=== PATIENT | female | born 1960 | race Caucasian/White ===

== ENCOUNTER 2018-10-03 12:35 | Inpatient (IN) | payer OTHER ==
[~2018-10-03] VITALS: Ht 152.4 cm; Wt 60.5 kg
[~2018-10-03 12:35] MED LIST: AMLO-218 PO; FERR-15 PO; FOLI-49 PO; HYDR-906 PO; IBUP-1542 PO; LEVO88TA36 PO; ONDA4TAB13 PO
[2018-10-03 12:38] VITALS: Ht 152.4 cm; Wt 60.5 kg
--- NOTE | 2018-10-03 14:50 | ERD ---
ER Documentation Chief Complaint Chief Complaint DIZZINESS,PARMAR,N/V,HEADACHE.S/P LEFT CATARACT SURGERY LAST MONDAY HPI 58-year-old woman complains of few days of dizziness, headache, nausea and generalized weakness. She is status post left cataract surgery about 1 week ago. Other than antibiotic drops she denies any new medications, no fevers or chills, no chest pain or shortness of breath. ROS All systems reviewed and are negative except as per history of present illness. Medications Home Meds Reported Medications Ofloxacin* (Ocuflox*) 0.3%-5 Ml Ophth Drops, 1 DROP BOTH EYES QID, BOTTLE 10/03/18 Ketorolac Tromethamine Oph (Ketorolac Tromethamine Oph) 0.5%-5 Ml Opht Drops, 1 DROP BOTH EYES QID, EA 10/03/18 Prednisolone Acetate* (Pred Forte*) 5 Ml Susp, 1 DROP BOTH EYES QID, EA 10/03/18 Simvastatin* (Zocor*) 10 Mg Tablet, 10 MG PO QHS, #30 TAB 10/03/18 Lisinopril* (Lisinopril*) 20 Mg Tablet, 20 MG PO DAILY, #30 TAB 10/03/18 Metformin Hcl* (Metformin Hcl*) 500 Mg Tablet, 500 MG PO WITH BREAKFAST DINNE, #60 TAB 10/03/18 Levothyroxine Sodium* (Levothyroxine Sodium*) 88 Mcg Tablet, 88 MCG PO BEFORE BREAKFAST, #30 TAB 10/03/18 Discontinued Reported Medications Ferrous Sulfate (Ferrousul) 325 Mg Tablet, PO BID 07/21/12 Levothyroxine Sodium (Levothroid) 88 Mcg Tablet, 88 MCG PO QAM 07/21/12 Folic Acid* (Folic Acid*) 1 Mg Tablet, PO DAILY 04/21/11 Amlodipine Besylate* (Norvasc*) 10 Mg Tablet, 10 MG PO DAILY 04/21/11 Discontinued Scripts Ibuprofen* (Motrin*) 600 Mg Tab, 600 MG PO Q6H PRN for PAIN, #30 TAB Prov:MARKUS MATHIS PA-C 05/08/16 Ondansetron Hcl* (Zofran*) 4 Mg Tab, 4 MG PO Q4H PRN for NAUSEA AND OR VOMITING, #30 TAB Prov:MARKUS MATHIS PA-C 05/08/16 Hydrocodone Bit-Acetaminophen ([place]) 5-325 Mg Tablet, 1 TAB PO Q4H PRN for PAIN, #30 TAB Prov:PINEDA PACHECO MD 03/24/14 Allergies Allergies: Coded Allergies: No Known Allergy (Verified , 10/03/18) PMhx/Soc Hypertension, diabetes, hypothyroidism, recent left cataract surgery, hypercholesterolemia History of Surgery: Yes (C-sectionx1 ) Anesthesia Reaction: No Hx Neurological Disorder: No Hx Respiratory Disorders: No Hx Cardiac Disorders: Yes (HTN) Hx Psychiatric Problems: No Hx Alcohol Use: No Hx Substance Use: No Hx Tobacco Use: No FmHx Family History: No diabetes Physical Exam Vitals Vital Signs Date Temp Pulse Resp B/P (MAP) Pulse Ox O2 O2 Flow FiO2 Time Delivery Rate 10/03/18 48 16 158/58 100 Room Air 19:49 (91) 10/03/18 47 16 146/73 98 Room Air 18:26 (97) 10/03/18 45 15 169/77 100 Room Air 17:30 (107) 10/03/18 97.0 52 18 209/86 100 12:38 (127) Physical Exam GENERAL: Well-developed, well-nourished, well-hydrated, in no apparent distress, looks nontoxic in appearance HEENT: Moist mucous membranes, pink conjunctiva, no cervical spine tenderness or step-off deformities, no goiter, no jaundice or icterus, extraocular movements intact without pain. No submandibular induration, and no pharyngeal erythema NEURO: Alert and oriented 3, cranial nerves II through XII intact bilaterally, pupils equal round reactive to light, no focal deficits or facial asymmetry, sensation intact distally Strength 5/5 in upper and lower extremities bilaterally CARDIAC: Bradycardic and regular LUNGS: Clear bilaterally no wheezing crackles or stridor ABDOMEN: Soft nontender, no guarding, no rigidity, no rebound, no psoas sign no obturator sign. Normoactive bowel sounds SKIN: Warm and dry to touch, no abrasions, contusions, or hematomas, no lacerations, no ecchymosis, no target lesions, and without ulcers EXTREMITIES: No clubbing cyanosis or edema, calves are bilaterally symmetrical, no Homans sign, no popliteal cord sign. Distal pulses equal and bilateral PSYCH: Normal affect without agitation or irritability Result Diagram: 10/03/18 1452 10/03/18 1452 Results 24 hrs Laboratory Tests Test 10/03/18 14:52 10/03/18 17:00 White Blood Count 10.2 10^3/ul Red Blood Count 4.78 10^6/ul Hemoglobin 13.2 g/dl Hematocrit 38.9 % Mean Corpuscular Volume 81.4 fl Mean Corpuscular Hemoglobin 27.6 pg Mean Corpuscular Hemoglobin Concent 33.9 g/dl Red Cell Distribution Width 12.4 % Platelet Count 235 10^3/UL Mean Platelet Volume 10.8 fl Immature Granulocytes % 0.400 % Neutrophils % 83.6 % Lymphocytes % 12.8 % Monocytes % 3.0 % Eosinophils % 0.0 % Basophils % 0.2 % Nucleated Red Blood Cells % 0.0 /100WBC Immature Granulocytes # 0.040 10^3/ul Neutrophils # 8.6 10^3/ul Lymphocytes # 1.3 10^3/ul Monocytes # 0.3 10^3/ul Eosinophils # 0.0 10^3/ul Basophils # 0.0 10^3/ul Nucleated Red Blood Cells # 0.0 10^3/ul Sodium Level 141 mmol/L Potassium Level 4.1 mmol/L Chloride Level 102 mmol/L Carbon Dioxide Level 27 mmol/L Anion Gap 12 Blood Urea Nitrogen 15 mg/dl Creatinine 0.52 mg/dl Est Glomerular Filtrat Rate mL/min > 60 mL/min Glucose Level 117 mg/dl Calcium Level 9.4 mg/dl Total Bilirubin 0.4 mg/dl Direct Bilirubin 0.00 mg/dl Indirect Bilirubin 0.4 mg/dl Aspartate Amino Transf (AST/SGOT) 25 IU/L Alanine Aminotransferase (ALT/SGPT) 43 IU/L Alkaline Phosphatase 168 IU/L Troponin I < 0.012 ng/ml Total Protein 8.3 g/dl Albumin 4.5 g/dl Globulin 3.80 g/dl Albumin/Globulin Ratio 1.18 Lipase 38 U/L Urine Color YELLOW Urine Clarity CLOUDY Urine pH 6.0 Urine Specific [place] 1.021 Urine Ketones NEGATIVE mg/dL Urine Nitrite NEGATIVE mg/dL Urine Bilirubin NEGATIVE mg/dL Urine Urobilinogen NEGATIVE mg/dL Urine Leukocyte Esterase NEGATIVE Joe/ul Urine Microscopic RBC 3 /HPF Urine Microscopic WBC 5 /HPF Urine Squamous Epithelial Cells FEW /HPF Urine Bacteria FEW /HPF Urine Mucus MANY /HPF Urine Hemoglobin NEGATIVE mg/dL Urine Glucose NEGATIVE mg/dL Urine Total Protein 2+ mg/dl Current Medications Medications Dose Sig/Ruiz Start Time Status Last (Trade) Ordered Route PRN Stop Time Admin Dose Reason Admin Sodium 1,000 ml @ Q1H STAT 10/03/18 DC 10/03/18 Chloride 1,000 mls/hr IV 15:09 15:52 10/03/18 16:08 Ondansetron 4 mg ONCE STAT 10/03/18 DC 10/03/18 HCl (Zofran IV 15:09 15:52 Inj) 10/03/18 15:11 Ketorolac 15 mg ONCE STAT 10/03/18 DC 10/03/18 Tromethamine IV 15:09 15:52 (Toradol) 10/03/18 15:11 Ceftriaxone 50 ml @ ONCE ONCE 10/03/18 DC 10/03/18 Sodium 100 mls/hr IVPB 18:00 18:12 10/03/18 18:29 Procedures/MDM IV line was established patient was placed on open winder rhythm strip revealed a narrow complex bradycardia at about 50 bpm with upright P and T waves. Patient was afebrile EKG performed, read by me revealed a sinus bradycardia at 47 bpm, normal axis, narrow QRS complex, no concerning ST elevations or depressions noted I administered 1 L normal saline IV, Toradol 15 mg IV, Zofran 4 mg IV CBC was normal, electrolytes revealed mild dehydration, liver function tests normal, troponin negative, urinalysis positive for infection. I administered ceftriaxone 1 g IV. One AP view of the chest performed, read by me reveals no acute infiltrates, normal mediastinum, sharp costophrenic and cardiac borders, no air under the diaphragm. Otherwise unremarkable chest x-ray. Patient will be admitted to telemetry for continued medical management and possible cardiology consultation, she has symptomatic bradycardia and a UTI Departure Diagnosis: Primary Impression: Dizziness Additional Impression: Symptomatic bradycardia Condition: SETH Castillo MD Oct 03, 2018 14:50
[2018-10-03] MEDS ORDERED: ONDANSETRON 4 MG INJ IV STA (15:09)
[2018-10-03] MEDS ORDERED: KETOROLAC 15 MG INJ IV STA (15:09)
[2018-10-03] MEDS ORDERED: SOD CHLORIDE 0.9% 1,000 ML IV STA (15:09)
[2018-10-03] MEDS ORDERED: LEVO88TA3 PO (15:16)
[2018-10-03] MEDS ORDERED: METF500T24 PO (15:16)
[2018-10-03] MEDS ORDERED: LISI-471 PO (15:17)
[2018-10-03] MEDS ORDERED: SIMV10TA PO (15:17)
[2018-10-03] MEDS ORDERED: PRED5DRO20 BOTH EYES (15:18)
[2018-10-03] MEDS ORDERED: KETO5DRO21 BOTH EYES (15:19)
[2018-10-03] MEDS ORDERED: OFLO5DRO46 BOTH EYES (15:19)
[2018-10-03] MEDS ORDERED: CEFTRIAXONE 1 GM/50 ML (PMX) 50 ML IVPB ONE (18:00)
[2018-10-03 21:12] VITALS: PULSE 49
[2018-10-03 21:13] VITALS: PULSE 44
[2018-10-03 21:19] VITALS: PULSE 39
[2018-10-03 21:51] VITALS: PULSE 37
[2018-10-03 22:23] VITALS: BP 162/64; PULSE 42; RESP 19
[2018-10-03] MEDS ORDERED: hydrALAzine 20 MG INJ IV PRN (23:00)
[2018-10-03] MEDS ORDERED: SOD CHLORIDE 0.9% 1,000 ML IV SCH (23:00)
[2018-10-04] VITALS (13 sets, daily range): BP systolic 124–185; BP diastolic 59–84; PULSE 45–66; RESP 16–20
[2018-10-04] MEDS: LEVOTHYROXINE 88 MCG TAB PO SCH (06:09)
[2018-10-04] MEDS: ACETAMINOPHEN 325 MG TAB PO PRN ×3 (07:51→22:45)
[2018-10-04] MEDS: PREDNISOLONE ACET 1% 5 ML OPH BOTH EYES SCH ×4 (08:13→21:25)
[2018-10-04] MEDS ORDERED: NIFEdipine (XL) 30 MG TAB PO SCH (09:00)
[2018-10-04] MEDS ORDERED: LISINOPRIL 20 MG TAB PO SCH (09:00)
--- NOTE | 2018-10-04 10:01 | QN ---
Documentation Comment SEEN AND EXAMINED OH ALBA MD Oct 04, 2018 10:01
[2018-10-04] MEDS ORDERED: GLUCOSE GEL 15 GRAM TUBE BUCCAL PRN (14:30)
[2018-10-04] MEDS ORDERED: DEXTROSE 50% 50 ML SYRINGE IV PRN ×2 (14:30)
[2018-10-04] MEDS ORDERED: GLUCOSE GEL 15 GRAM TUBE PO PRN ×2 (14:30)
[2018-10-04] MEDS ORDERED: GLUCAGON 1 MG INJ IM PRN (14:30)
[2018-10-04] MEDS ORDERED: ONDANSETRON 4 MG INJ IV PRN (16:30)
[2018-10-04] MEDS ORDERED: NIFEdipine (XL) 30 MG TAB PO ONE (16:30)
[2018-10-04] MEDS ORDERED: LORAZEPAM 2 MG INJ IV PRN (16:30)
--- NOTE | 2018-10-04 17:01 | RADRPT ---
Vent Rate: 48 bpm RR Interval: 0 msec [place] Interval: 164 msec QRS Duration: 76 msec QT Interval: 434 msec QTC Interval: 387 msec P-R-T [place]: 43 - 22 - 38 degrees Marked sinus bradycardia Abnormal ECG Electronically Signed By: Adriano Robbins
--- NOTE | 2018-10-04 17:47 | HP ---
DATE OF ADMISSION: 10/03/2018 REASON FOR ADMISSION: Sent from PMD, complaining of dizziness, headaches and weakness, status post l eft cataract surgery. HISTORY OF PRESENTING ILLNESS: This is a 58-year-old female with a past medical history of diabetes, hypertension, hyperlipidemia, hypothyroidism. According to the patient, she had been doing fine unt il 1 week ago she had a left cataract surgery. About 1 week ago, she is taking some 3 eyedrops, 1 is ofloxacin, another is prednisolone and ketorolac. After that, the patient has been feeling dizzines s for the past few days. The patient is also having some headaches, also having episode of nausea an d vomiting. The patient denied any chest pain, any shortness of breath. The patient came into the e mergency department for further evaluation. On arrival to ED, blood pressure was 209/86, pulse was 5 2. BUN of 15, creatinine 0.52, alkaline phosphatase is 168, total protein 8.3, lipase 38. UA showed few bacteria, 2+ protein. The patient had chest x-ray that showed no acute disease. The patient's EKG showed marked sinus bradycardia and the patient was admitted for further management. PAST MEDICAL HISTORY: 1. Hypertension. 2. Hyperlipidemia. 3. Hypercholesterolemia. 4. Diabetes. 5. Hypothyroidism. 6. Left cataract surgery. ALLERGIES: NONE. PAST SURGICAL HISTORY: 1. Left cataract surgery a week ago. 2. . MEDICATIONS TAKING AT HOME: 1. Lisinopril 20. 2. Simvastatin 10. 3. Ketorolac. 4. Ofloxacin eyedrops. 5. Prednisolone eyedrops. 6. Levothyroxine 88 mcg before breakfast. 7. Metformin 500 p.o. breakfast and dinner. SOCIAL HISTORY: Denies any history of smoking, alcohol or any drug use. Currently lives at home wit h a son. FAMILY HISTORY: Noncontributory. REVIEW OF SYSTEMS: The patient complains of generalized headaches, nausea, some dizziness, generaliz ed weakness. Denies any chest pain, any shortness of breath. Denies any abdominal pain, nausea, vom iting, diarrhea. Denies any dysuria, any urgency. Denies any hematemesis, any melena, any bright re d blood per rectum. According to the patient, she has been compliant with her medications. PHYSICAL EXAMINATION: VITAL SIGNS: Initial temperature 97.0. Initial blood pressure was 209/86, heart rate was 52, goes d own to 39, respiratory rate 18, saturating 98%. GENERAL: The patient is awake, alert, oriented, appears to be in mild distress secondary to pain. HEENT: Pupils are equal, round, reactive to light. NECK: Supple. HEART: Bradycardic. No murmur, rubs or gallops. LUNGS: Clear to auscultation bilaterally. ABDOMEN: Soft, nontender, nondistended, positive normoactive bowel sounds. EXTREMITIES: No clubbing, cyanosis or edema. NEUROLOGIC: Nonfocal. Awake, alert, oriented. Muscle strength is 5/5 bilateral upper and lower ext remities. Sensation is intact. LABORATORY DATA: Show BMP within normal limit. White count of 10.2, hemoglobin 13.2, platelet count 235. UA shows few bacteria. DIAGNOSTIC DATA: Chest x-ray: No acute disease. EKG shows severe bradycardia. ASSESSMENT AND PLAN: This is a 58-year-old female who presented with: 1. Headaches, dizziness, nausea, vomiting, weakness, status post left cataract surgery. Clearly, th e patient was in distress after the surgery. These symptoms could be all secondary to bradycardia; h owever also rule out intracranial pathology. 2. Severe bradycardia with a history of hypothyroidism. 3. Hypertension, uncontrolled, likely also due to ____. 4. Diabetes. 5. Hyperlipidemia. 6. Hypothyroidism. PLAN: At this period of time, the patient is admitted to telemetry. The patient will be continued o n lisinopril and nifedipine. The patient will be also started on Rocephin. Cardiology consultation has already been requested for bradycardia. We will also get a CT of the head. ____ consultation wa s called for severe bradycardia. TSH, T3 and T4 will be checked. Rest of the treatment will depend on the patient's hospitalization course. Dictated By: OH SILVA/AME Conf#: [id number] DID#: [id number] CC: MARI CABRERA MD; GONZÁLEZ PEGUERO MD;*EndCC*
[2018-10-04] MEDS: INSULIN ASPART [NOVOLOG] 3 ML PEN SC SCH ×2 (17:48→21:00)
[2018-10-04] MEDS: CEFTRIAXONE 1 GM/50 ML (PMX) 50 ML IVPB SCH (18:14)
[2018-10-04] MEDS: NIFEdipine (XL) 30 MG TAB PO SCH (21:25)
[2018-10-04] MEDS: ATORVASTATIN 10 MG TAB PO SCH (21:26)
[2018-10-04] MEDS: LISINOPRIL 20 MG TAB PO SCH (21:28)
--- NOTE | 2018-10-04 21:49 | RADRPT ---
Echocardiogram Report Patient Name: WARREN EUBANKSPatient ID: [id number] : 1960 (58y 3m)Study Date: 10/04/2018 9:06:44 AM Gender: FAccession #: [id number] Tech: Mando Ordonez [facility] Location: [facility] Ref.Physician: GONZÁLEZ PEGUERO Height(Cm): BSA: Weight(Kg): Quality: AdequateAccount #: Procedures: Echocardiographic Report: Transthoracic echocardiogram with complete 2D, M-Mode, and doppler examination. Indications: Symptomatic Bradycardia. Measurements: 2D/M Mode Doppler Measurement Value Normal Range Measurement Value Normal Range LVIDd 2D 3.7 [ 3.8 - 5.2 ] cm AV Mean [place] 1.3 [ 70.0 - 90.0 ] cm/sec LVIDs 2D 2.4 [ 2.2 - 3.5 ] cm AV Mean PG 9.0 [ 2.0 - 4.0 ] mmHg LVPWd 2D 1.2 [ 0.6 - 0.9 ] cm AV VTI 48.7 cm IVSd 2D 1.2 [ 0.6 - 0.9 ] cm LVOT Peak [place] 1.1 [ 70.0 - 110.0 ] cm/sec AoR Diam 2D 2.3 [ 2.3 - 3.1 ] cm LVOT Peak PG 5.0 [ 2.0 - 6.0 ] mmHg EDV 2D 58.5 [ 46.0 - 106.0 ] ml MV E Peak [place] 1.2 [ 60.0 - 130.0 ] cm/sec ESV 2D 19.7 [ 14.0 - 42.0 ] ml MV A Peak [place] 0.9 [ 100.0 - 120.0 ] cm/sec EF 2D 66.3 [ 54.0 - 74.0 ] percent MV E/A 1.3 [ 0.8 - 1.5 ] ratio LA Dimen 2D 3.6 [ 2.7 - 3.8 ] cm MV Decel Time 243 [ 104 - 258 ] msec Lat E` Lennox 0.1 [ 10.0 - 15.0 ] cm/sec Lateral E/E` 14.2 [ 1.0 - 2.0 ] ratio MV E/A 1.3 [ 0.8 - 1.5 ] ratio TR Peak [place] 2.6 [ 100.0 - 280.0 ] cm/sec TR Peak PG 27.0 mmHg RVSP 35.0 [ 10.0 - 36.0 ] mmHg Findings: Left Ventricle: Hyperdynamic left ventricular systolic function. Normal left ventricular cavity size. Mild concentric left ventricular hypertrophy. Ejection fraction is visually estimated at >65 %. Tissue Doppler/Mitral Doppler indices are consistent with impaired relaxation (Stage I diastolic dysfunction). Right Ventricle: Normal right ventricular size. Normal right ventricular systolic function. Left Atrium: The left atrium is normal in size. Right Atrium: The right atrium is normal in size. Mitral Valve: Mild mitral leaflet calcification. Mild mitral annular calcification. Trace mitral regurgitation. Aortic Valve: No hemodynamically significant aortic stenosis by doppler. Aortic cusps appear mildly calcified. Tricuspid Valve: Normal appearance of the tricuspid valve. Estimated peak PA systolic pressure 35 mmHg. There is mild tricuspid regurgitation. Pulmonic Valve: Normal pulmonic valve appearance. Pericardium: Normal pericardium with no significant pericardial effusion. Aorta: Normal aortic root. IVC: Dilated IVC with respiratory collapse consistent with elevated right atrial pressure. Conclusions: Hyperdynamic left ventricular systolic function. Normal left ventricular cavity size. Mild concentric left ventricular hypertrophy. Ejection fraction is visually estimated at >65 %. Tissue Doppler/Mitral Doppler indices are consistent with impaired relaxation (Stage I diastolic dysfunction). Mild mitral leaflet calcification. Mild mitral annular calcification. Trace mitral regurgitation. Normal appearance of the tricuspid valve. Estimated peak PA systolic pressure 35 mmHg. There is mild tricuspid regurgitation. Electronically Signed By: Andrzej Silverio 2018-10-04 21:48:56 PDT
--- NOTE | 2018-10-04 23:01 | CONS ---
DATE OF ADMISSION: 10/03/2018 DATE OF CONSULTATION: 10/04/2018 REASON FOR CONSULTATION: Bradycardia. REQUESTING PHYSICIAN: Dr. Alba. HISTORY OF PRESENT ILLNESS: The patient is a 58-year-old female with history of diabetes mellitus, h ypertension, dyslipidemia, hypothyroidism who a week ago, had a left cataract surgery and has been ramirez ving recurrent dizziness since this time. Upon arrival in the emergency department, temperature 97, blood pressure markedly elevated 209/86, pulse 60, respirations 18, satting 100%. The patient's labs are notable for white count 10.2, hemoglobin 13.2, platelet count of 235. Sodium 141, potassium 4.1 , creatinine 0.5, BUN 15. Troponin negative. TSH is 0.474. UA positive. The patient underwent a c hest x-ray revealing no acute cardiopulmonary abnormalities. The patient's electrocardiogram reveale d sinus bradycardia, rate of 48, normal axis with nonspecific ST and T wave abnormality. The patient was admitted to telemetry floor and since admitted to the floor, has been monitored and having recur rent bouts of bradycardia, mainly to the 40s, but has additionally had heart rates down to the 30s. Given these findings, cardiac consult is requested. PAST MEDICAL HISTORY: As above in HPI. MEDICATIONS CURRENTLY IN HOSPITAL: 1. Procardia 30 mg p.o. b.i.d. 2. Zestril 20 mg b.i.d. 3. Lipitor 10 at bedtime. 4. Ceftriaxone IV daily. 5. Ativan p.r.n. 6. Synthroid 88 mcg daily. 7. Hydralazine p.r.n. 8. Tylenol p.r.n. 9. Prednisolone eyedrops. ALLERGIES: NO KNOWN DRUG ALLERGIES. SOCIAL HISTORY: No current tobacco, ETOH or illicit drug use. FAMILY HISTORY: No sudden cardiac or early CAD. REVIEW OF SYSTEMS: As above in HPI. CONSTITUTIONAL: No fevers, chills. PULMONARY: No current shortness of breath. CARDIOVASCULAR: No current chest pain. GASTROINTESTINAL: No vomiting. GENITOURINARY: No hematuria. MUSCULOSKELETAL: Degenerative joint disease. PSYCHIATRIC: No documented psych history. NEUROLOGIC: No documented CVA. ENDOCRINE: Positive history of diabetes mellitus. PHYSICAL EXAMINATION: VITAL SIGNS: Temperature 98.6, blood pressure most recently 152/67, pulse 56, respirations 18, sat 9 5%. GENERAL: The patient is alert, awake, in no acute distress. NECK: JVP approximately 8 to 9 cm of water. CHEST: Fair air movement throughout. HEART: Bradycardic, regular rhythm, normal S1, S2, I/ systolic murmur, nondisplaced PMI. ABDOMEN: Positive bowel sounds, soft. EXTREMITIES: No edema, 1+ pulses bilaterally, posterior tibial. LABORATORY DATA: Most recent from today, sodium 141, creatinine 0.59, BUN 18, AST 20, ALT 31. TSH o f 0.474. White blood cell count 7.4, hemoglobin 9.9, platelet count 218. IMAGING STUDIES: Chest x-ray from the revealing no acute disease. ECG: As above in HPI. No further electrocardiograms for my review at this time. IMPRESSION: 1. Bradycardia recurrent with dizziness possibly consistent with symptomatic bradycardia. 2. Dizziness, weakness. 3. Hypertension. Elevated on admit, slowly improving on oral antihypertensives. 4. Status post cataract surgery. 5. Urinary tract infection. 6. Dyslipidemia. RECOMMENDATIONS: 1. At this time, we would maintain the patient on telemetry monitoring to continue to follow rhythm and rate control closely. 2. We will check a 2D echo for ejection fraction, wall motion, and major valve abnormalities. 3. Rule out for myocardial infarction to ensure this patient's coughing symptoms, atraumatic not due to any recent acute coronary syndromes such as an acute myocardial infarction. 4. No neo agents given bradycardia. 5. Titrate the patient's Procardia and Zestril as necessary to improve overall systolic blood pressu re control as you are doing. 6. Continue the patient's current statin and adjust it according to a fasting lipid panel screen trixie ck. 7. We will continue to follow the patient for any possible need for permanent pacemaker. Thank you for allowing me to take part in the care of this patient. I will continue to follow very c losely with you with recommendations to be made as the patient progresses through her inpatient hospi leonard clinical course. Dictated By: MARI LUEVANO/AME Conf#: [id number] DID#: [id number] CC: MARI CABRERA MD; GONZÁLEZ PEGUERO MD; OH ALBA;*EndCC*
[2018-10-05] VITALS (11 sets, daily range): BP systolic 109–158; BP diastolic 57–73; PULSE 50–68; RESP 18–19
[2018-10-05] MEDS: ACCU-CHEK XX SCH (02:00)
[2018-10-05] MEDS: ACETAMINOPHEN 325 MG TAB PO PRN (02:10)
[2018-10-05] MEDS: LEVOTHYROXINE 88 MCG TAB PO SCH (07:10)
[2018-10-05] MEDS: INSULIN ASPART [NOVOLOG] 3 ML PEN SC SCH ×4 (07:52→21:00)
[2018-10-05] MEDS: PREDNISOLONE ACET 1% 5 ML OPH BOTH EYES SCH ×4 (08:07→21:00)
[2018-10-05] MEDS: NIFEdipine (XL) 30 MG TAB PO SCH ×2 (08:14→21:01)
[2018-10-05] MEDS: LISINOPRIL 20 MG TAB PO SCH ×2 (08:15→21:01)
--- NOTE | 2018-10-05 13:01 | CONS ---
Assessment/Plan Assessment/Plan Problems: (1) Acquired hypothyroidism Onset Date: ~ 09/2001 Status: Chronic Comment: Stone TSH criteria she is euthyroid. To be thorough we will order free T4 and free T3 but I do not believe that this is the cause of her bradycardia I do believe that her primary care physician Dr. Vinay Eric has been managing this appropriately (2) Diabetes mellitus type 2 in nonobese Status: Chronic Comment: Check A1c. (3) Essential hypertension Status: Chronic Comment: Management as per cardiology (4) Grade I diastolic dysfunction Status: Chronic Comment: Control of blood pressure (5) Symptomatic bradycardia Status: Acute Comment: As per cardiology. I do not believe thyroid has of feature in this (6) Rheumatoid arthritis Status: Chronic Comment: Noted. Qualifiers: Qualified Codes: M06.9 - Rheumatoid arthritis, unspecified (7) Abnormal finding on urinalysis Status: Acute Comment: Gram-positive organisms on culture. Consider repeat UA to make sure that she does have microalbuminuria of diabetes Consultation Date/Type/Reason Admit Date/Time Oct 03, 2018 at 20:13 Date of Consultation: Oct 05, 2018 Type of Consult Endocrinology Reason for Consultation Hypothyroidism of 17 years duration; admission with bradycardia Requesting Provider: OH ALBA MD Date/Time of Note DATE: 10/05/18 TIME: 12:56 Hx of Present Illness Charming 58-year-old female who reports a 17-year history of diagnosed hypothyroidism. She has been steadily on replacement dose therapy using levothyroxine 88 mcg a day and is consistent and compliant with taking her medications. She was admitted with bradycardia but no other symptoms that might suggest a hormonal abnormality. Her blood testing does demonstrate that she is in a euthyroid state based on TSH criteria. Constitutional: no complaints Eyes: no complaints ENT: no complaints Respiratory: no complaints Gastrointestinal: no complaints Musculoskeletal: other (Rheumatoid arthritis) Endocrine: no complaints Past Medical History Medical History: diabetes, hypertension, hypothyroid, other (Rheumatoid arthritis) Home Meds Reported Medications Ofloxacin* (Ocuflox*) 0.3%-5 Ml Ophth Drops, 1 DROP BOTH EYES QID, BOTTLE 10/03/18 Ketorolac Tromethamine Oph (Ketorolac Tromethamine Oph) 0.5%-5 Ml Opht Drops, 1 DROP BOTH EYES QID, EA 10/03/18 Prednisolone Acetate* (Pred Forte*) 5 Ml Susp, 1 DROP BOTH EYES QID, EA 10/03/18 Simvastatin* (Zocor*) 10 Mg Tablet, 10 MG PO QHS, #30 TAB 10/03/18 Lisinopril* (Lisinopril*) 20 Mg Tablet, 20 MG PO DAILY, #30 TAB 10/03/18 Metformin Hcl* (Metformin Hcl*) 500 Mg Tablet, 500 MG PO WITH BREAKFAST DINNE, #60 TAB 10/03/18 Levothyroxine Sodium* (Levothyroxine Sodium*) 88 Mcg Tablet, 88 MCG PO BEFORE BREAKFAST, #30 TAB 10/03/18 Discontinued Reported Medications Ferrous Sulfate (Ferrousul) 325 Mg Tablet, PO BID 07/21/12 Levothyroxine Sodium (Levothroid) 88 Mcg Tablet, 88 MCG PO QAM 07/21/12 Folic Acid* (Folic Acid*) 1 Mg Tablet, PO DAILY 04/21/11 Amlodipine Besylate* (Norvasc*) 10 Mg Tablet, 10 MG PO DAILY 04/21/11 Discontinued Scripts Ibuprofen* (Motrin*) 600 Mg Tab, 600 MG PO Q6H PRN for PAIN, #30 TAB Prov:MARKUS MATHIS PA-C 05/08/16 Ondansetron Hcl* (Zofran*) 4 Mg Tab, 4 MG PO Q4H PRN for NAUSEA AND OR VOMITING, #30 TAB Prov:MARKUS MATHIS PA-C 05/08/16 Hydrocodone Bit-Acetaminophen (Axton) 5-325 Mg Tablet, 1 TAB PO Q4H PRN for PAIN, #30 TAB Prov:PINEDA PACHECO MD 03/24/14 Medications Current Medications Ceftriaxone Sodium 50 ml @ 100 mls/hr Q24H IVPB Last administered on 10/04/18at 18:14; Admin Dose 100 MLS/HR; Start 10/04/18 at 18:00 Hydralazine HCl (Apresoline) 10 mg Q6H PRN IV ELEVATED BLOOD PRESSURE Last administered on 10/04/18at 11:44; Admin Dose 10 MG; Start 10/03/18 at 23:00 Acetaminophen (Tylenol Tab) 650 mg Q4H PRN PO MILD PAIN(1-3)OR ELEVATED TEMP Last administered on 10/05/18at 02:10; Admin Dose 650 MG; Start 10/03/18 at 23:00 Levothyroxine Sodium (Synthroid) 88 mcg BEFORE BREAKFAST PO Last administered on 10/05/18at 07:10; Admin Dose 88 MCG; Start 10/04/18 at 07:00 Prednisolone Acetate (Pred-Forte 1%) 1 drop QID BOTH EYES Last administered on 10/05/18at 08:07; Admin Dose 1 DROP; Start 10/04/18 at 09:00 Atorvastatin Calcium (Lipitor) 10 mg DAILY@21 PO Last administered on 10/04/18at 21:26; Admin Dose 10 MG; Start 10/04/18 at 21:00 Lisinopril (Zestril) 20 mg BID PO Last administered on 10/04/18at 21:28; Admin Dose 20 MG; Start 10/04/18 at 21:00 Diagnostic Test (Pha) (Accu-Chek) 1 ea 02 XX Last administered on 10/05/18at 02:00; Admin Dose 1 EA; Start 10/05/18 at 02:00 Insulin Aspart (Novolog Insulin Pen) NOVOLOG *MILD* ALGORITHM WITH MEALS BEDTIME SC ; Start 10/04/18 at 17:55 Miscellaneous Information 1 ea NOTE XX ; Start 10/04/18 at 14:30 Glucose (Glutose) 15 gm Q15M PRN PO DECREASED GLUCOSE; Start 10/04/18 at 14:30 Glucose (Glutose) 22.5 gm Q15M PRN PO DECREASED GLUCOSE; Start 10/04/18 at 14:30 Dextrose (D50w Syringe) 25 ml Q15M PRN IV DECREASED GLUCOSE; Start 10/04/18 at 14:30 Dextrose (D50w Syringe) 50 ml Q15M PRN IV DECREASED GLUCOSE; Start 10/04/18 at 14:30 Glucagon (Glucagen) 1 mg Q15M PRN IM DECREASED GLUCOSE; Start 10/04/18 at 14:30 Glucose (Glutose) 15 gm Q15M PRN BUCCAL DECREASED GLUCOSE; Start 10/04/18 at 14:30 Nifedipine (Procardia Xl) 30 mg BID PO Last administered on 10/04/18at 21:25; Admin Dose 30 MG; Start 10/04/18 at 21:00 Ondansetron HCl (Zofran Inj) 4 mg Q4H PRN IV NAUSEA AND/OR VOMITING; Start 10/04/18 at 16:30 Lorazepam (Ativan) 0.5 mg Q8H PRN IV ANXIETY; Start 10/04/18 at 16:30 Allergies: Coded Allergies: No Known Allergy (Verified , 10/03/18) Past Surgical History Past Surgical Hx: other (Status post cataract extraction [place]:'s history of C- section 17 years ago) Family History Significant Family History: no pertinent family hx Social History Born in [facility] and raised. In the [place] since 1979. Lives with her son who is a senior in the school, works at a local [employer] Alcohol Use: none Smoking Status: Never smoker Drug Use: none Exam/Review of Systems Exam Vitals Vital Signs Date Temp Pulse Resp B/P (MAP) Pulse Ox O2 O2 Flow FiO2 Time Delivery Rate 10/05/18 98.6 68 18 154/64 93 11:06 (94) 10/05/18 Room Air 04:00 Intake and Output 10/04/18 10/04/18 10/05/18 1414:59 22:59 06:59 IntakeIntake Total 850 ml 500 ml BalanceBalance 850 ml 500 ml Constitutional: alert Head: normocephalic, atraumatic Eyes: nl conjunctiva, EOMI, nl lids, nl sclera, PERRL ENMT: nl external ears & nose, nl lips & teeth, nl nasal mucosa & septum, mucosa pink and moist Neck: supple, non-tender, other (Thyroid is somewhat firm without nodule) Respiratory: clear to auscultation, normal air movement Cardiovascular: regular rate and rhythm, nl pulses Results Result Diagram: 10/04/18 0741 10/04/18 0741 Results 24hrs Laboratory Tests Test 10/04/18 17:40 10/04/18 20:45 10/05/18 02:01 10/05/18 07:43 Bedside Glucose 102 132 123 108 Test 10/05/18 11:32 Bedside Glucose 98 Medications Medication Current Medications Ceftriaxone Sodium 50 ml @ 100 mls/hr Q24H IVPB Last administered on 10/04/18at 18:14; Admin Dose 100 MLS/HR; Start 10/04/18 at 18:00 Hydralazine HCl (Apresoline) 10 mg Q6H PRN IV ELEVATED BLOOD PRESSURE Last administered on 10/04/18at 11:44; Admin Dose 10 MG; Start 10/03/18 at 23:00 Acetaminophen (Tylenol Tab) 650 mg Q4H PRN PO MILD PAIN(1-3)OR ELEVATED TEMP Last administered on 10/05/18at 02:10; Admin Dose 650 MG; Start 10/03/18 at 23:00 Levothyroxine Sodium (Synthroid) 88 mcg BEFORE BREAKFAST PO Last administered on 10/05/18 07:10; Admin Dose 88 MCG; Start 10/04/18 at 07:00 Prednisolone Acetate (Pred-Forte 1%) 1 drop QID BOTH EYES Last administered on 10/05/18at 08:07; Admin Dose 1 DROP; Start 10/04/18 at 09:00 Atorvastatin Calcium (Lipitor) 10 mg DAILY@21 PO Last administered on 10/04/18 21:26; Admin Dose 10 MG; Start 10/04/18 at 21:00 Lisinopril (Zestril) 20 mg BID PO Last administered on 10/04/18at 21:28; Admin Dose 20 MG; Start 10/04/18 at 21:00 Diagnostic Test (Pha) (Accu-Chek) 1 ea 02 XX Last administered on 10/05/18at 02:00; Admin Dose 1 EA; Start 10/05/18 at 02:00 Insulin Aspart (Novolog Insulin Pen) NOVOLOG *MILD* ALGORITHM WITH MEALS BEDTIME SC ; Start 10/04/18 at 17:55 Miscellaneous Information 1 ea NOTE XX ; Start 10/04/18 at 14:30 Glucose (Glutose) 15 gm Q15M PRN PO DECREASED GLUCOSE; Start 10/04/18 at 14:30 Glucose (Glutose) 22.5 gm Q15M PRN PO DECREASED GLUCOSE; Start 10/04/18 at 14:30 Dextrose (D50w Syringe) 25 ml Q15M PRN IV DECREASED GLUCOSE; Start 10/04/18 at 14:30 Dextrose (D50w Syringe) 50 ml Q15M PRN IV DECREASED GLUCOSE; Start 10/04/18 at 14:30 Glucagon (Glucagen) 1 mg Q15M PRN IM DECREASED GLUCOSE; Start 10/04/18 at 14:30 Glucose (Glutose) 15 gm Q15M PRN BUCCAL DECREASED GLUCOSE; Start 10/04/18 at 14:30 Nifedipine (Procardia Xl) 30 mg BID PO Last administered on 4/11/19at 21:25; Admin Dose 30 MG; Start 10/04/18 at 21:00 Ondansetron HCl (Zofran Inj) 4 mg Q4H PRN IV NAUSEA AND/OR VOMITING; Start 10/04/18 at 16:30 Lorazepam (Ativan) 0.5 mg Q8H PRN IV ANXIETY; Start 10/04/18 at 16:30 AZAM MOORE MD Oct 05, 2018 13:01
--- NOTE | 2018-10-05 15:16 | PN ---
Date/Time of Note Date/Time of Note DATE: 10/05/18 TIME: 15:12 Assessment/Plan VTE Prophylaxis Risk score (from Ns)>0 risk: 1 SCD applied (from Nsg): Yes Pharmacological prophylaxis: NA/contraindicated Pharm contraindication: low risk/ambulating Lines/Catheters IV Catheter Type (from Nrs): Peripheral IV Urinary Cath still in place: No Assessment/Plan Hospital Course 58-year-old female who presented with: 1. Headaches, dizziness, nausea, vomiting, weakness, status post left cataract surgery. Clearly, the patient was in distress after the surgery. These symptoms could be all secondary to bradycardia; however also rule out intracranial pathology. CT of the head is negative bradycardia has improved. 2. Severe bradycardia with a history of hypothyroidism. TSH within normal limit 3. Hypertension, uncontrolled, likely also due to stress/anxiety_. 4. Diabetes. 5. Hyperlipidemia. 6. Hypothyroidism. plan -Continue with benazepril 20 twice daily and nifedipine 30 twice daily -TSH within normal limits, cw with levothyroxine 88 -Repeat UA -Heart rate seem to be improving -Echo reviewed -Treated with Rocephin however UA shows gram-positive organism -Ambulation and monitor the heart rate -Will need to follow-up with a surgeon outpatient Result Diagram: 10/04/18 0741 10/04/18 0741 Results 24hrs Laboratory Tests Test 10/04/18 17:40 10/04/18 20:45 10/05/18 02:01 10/05/18 07:43 Bedside Glucose 102 132 123 108 Test 10/05/18 11:32 10/05/18 13:41 Bedside Glucose 98 Free Thyroxine 1.21 Free 2.57 L Triiodothyronine (T3) pg/mL Subjective 24 Hr Interval Summary Free Text/Dictation Feels a lot better today. Dizziness is improving Heart rate is improving BP is better Exam/Review of Systems Exam Vitals Vital Signs Date Temp Pulse Resp B/P (MAP) Pulse Ox O2 O2 Flow FiO2 Time Delivery Rate 10/05/18 61 13:08 10/05/18 98.6 18 154/64 93 11:06 (94) 10/05/18 Room Air 04:00 Intake and Output 10/04/18 10/04/18 10/05/18 1515:00 23:00 07:00 IntakeIntake Total 850 ml 500 ml BalanceBalance 850 ml 500 ml Exam GENERAL: The patient is awake, alert, oriented, appears to be in mild distress secondary to pain. HEENT: Pupils are equal, round, reactive to light. NECK: Supple. HEART: Bradycardic. No murmur, rubs or gallops. LUNGS: Clear to auscultation bilaterally. ABDOMEN: Soft, nontender, nondistended, positive normoactive bowel sounds. EXTREMITIES: No clubbing, cyanosis or edema. NEUROLOGIC: Nonfocal. Awake, alert, oriented. Muscle strength is 5/5 bilateral upper and lower extremities. Sensation is intact. Results Results 24hrs Laboratory Tests Test 10/04/18 17:40 10/04/18 20:45 10/05/18 02:01 10/05/18 07:43 Bedside Glucose 102 132 123 108 Test 10/05/18 11:32 10/05/18 13:41 Bedside Glucose 98 Free Thyroxine 1.21 Free 2.57 L Triiodothyronine (T3) pg/mL Medications Medication Current Medications Ceftriaxone Sodium 50 ml @ 100 mls/hr Q24H IVPB Last administered on 10/04/18 18:14; Admin Dose 100 MLS/HR; Start 10/04/18 at 18:00 Hydralazine HCl (Apresoline) 10 mg Q6H PRN IV ELEVATED BLOOD PRESSURE Last administered on 10/04/18 11:44; Admin Dose 10 MG; Start 10/03/18 at 23:00 Acetaminophen (Tylenol Tab) 650 mg Q4H PRN PO MILD PAIN(1-3)OR ELEVATED TEMP Last administered on 10/05/18 02:10; Admin Dose 650 MG; Start 10/03/18 at 23:00 Levothyroxine Sodium (Synthroid) 88 mcg BEFORE BREAKFAST PO Last administered on 10/05/18 07:10; Admin Dose 88 MCG; Start 10/04/18 at 07:00 Prednisolone Acetate (Pred-Forte 1%) 1 drop QID BOTH EYES Last administered on 10/05/18 13:10; Admin Dose 1 DROP; Start 10/04/18 at 09:00 Atorvastatin Calcium (Lipitor) 10 mg DAILY@21 PO Last administered on 10/04/18 21:26; Admin Dose 10 MG; Start 10/04/18 at 21:00 Lisinopril (Zestril) 20 mg BID PO Last administered on 10/04/18at 21:28; Admin Dose 20 MG; Start 10/04/18 at 21:00 Diagnostic Test (Pha) (Accu-Chek) 1 ea 02 XX Last administered on 10/05/18at 02:00; Admin Dose 1 EA; Start 10/05/18 at 02:00 Insulin Aspart (Novolog Insulin Pen) NOVOLOG *MILD* ALGORITHM WITH MEALS BEDTIME SC ; Start 10/04/18 at 17:55 Miscellaneous Information 1 ea NOTE XX ; Start 10/04/18 at 14:30 Glucose (Glutose) 15 gm Q15M PRN PO DECREASED GLUCOSE; Start 10/04/18 at 14:30 Glucose (Glutose) 22.5 gm Q15M PRN PO DECREASED GLUCOSE; Start 10/04/18 at 14:30 Dextrose (D50w Syringe) 25 ml Q15M PRN IV DECREASED GLUCOSE; Start 10/04/18 at 14:30 Dextrose (D50w Syringe) 50 ml Q15M PRN IV DECREASED GLUCOSE; Start 10/04/18 at 14:30 Glucagon (Glucagen) 1 mg Q15M PRN IM DECREASED GLUCOSE; Start 10/04/18 at 14:30 Glucose (Glutose) 15 gm Q15M PRN BUCCAL DECREASED GLUCOSE; Start 10/04/18 at 14:30 Nifedipine (Procardia Xl) 30 mg BID PO Last administered on 10/04/18at 21:25; Admin Dose 30 MG; Start 10/04/18 at 21:00 Ondansetron HCl (Zofran Inj) 4 mg Q4H PRN IV NAUSEA AND/OR VOMITING; Start 10/04/18 at 16:30 Lorazepam (Ativan) 0.5 mg Q8H PRN IV ANXIETY; Start 10/04/18 at 16:30 OH ALBA MD Oct 05, 2018 15:16
[2018-10-05] MEDS: CEFTRIAXONE 1 GM/50 ML (PMX) 50 ML IVPB SCH (17:34)
[2018-10-05] MEDS: ATORVASTATIN 10 MG TAB PO SCH (21:01)
[2018-10-06] VITALS (10 sets, daily range): BP systolic 117–144; BP diastolic 61–75; PULSE 44–70; RESP 18
[2018-10-06] MEDS: ACCU-CHEK XX SCH (02:00)
[2018-10-06] MEDS: LEVOTHYROXINE 88 MCG TAB PO SCH (06:22)
[2018-10-06] MEDS: INSULIN ASPART [NOVOLOG] 3 ML PEN SC SCH ×2 (07:46→11:50)
[2018-10-06] MEDS: LISINOPRIL 20 MG TAB PO SCH (08:41)
[2018-10-06] MEDS: NIFEdipine (XL) 30 MG TAB PO SCH (08:41)
[2018-10-06] MEDS: PREDNISOLONE ACET 1% 5 ML OPH BOTH EYES SCH ×2 (08:42→13:18)
--- NOTE | 2018-10-06 15:12 | CONS ---
Assessment/Plan Assessment/Plan Problems: (1) Acquired hypothyroidism Onset Date: ~ 09/2001 Status: Chronic Comment: Clinically and biochemically euthyroid given TSH and Free T4 levels. Consultation Date/Type/Reason Admit Date/Time Oct 03, 2018 at 20:13 Initial Consult Date 10/05/18 Type of Consult Endocrine Reason for Consultation Thyroid disorder Requesting Provider: OH ALBA MD Date/Time of Note DATE: 10/06/18 TIME: 15:09 24 HR Interval Summary Free Text/Dictation No acute endocrine issues Exam/Review of Systems Exam Vitals Vital Signs Date Temp Pulse Resp B/P (MAP) Pulse Ox O2 O2 Flow FiO2 Time Delivery Rate 10/06/18 63 12:50 10/06/18 98.5 18 143/70 97 11:09 (94) 10/06/18 Room Air 04:00 Intake and Output 10/05/18 10/05/18 10/06/18 1515:00 23:00 07:00 IntakeIntake Total 950 ml 500 ml BalanceBalance 950 ml 500 ml Constitutional: alert, oriented, well developed Neck: supple Respiratory: clear to auscultation Cardiovascular: regular rate and rhythm Gastrointestinal: soft Musculoskeletal: nl extremities to inspection Results Result Diagram: 10/04/18 0741 10/04/18 0741 Results 24hrs Laboratory Tests Test 10/05/18 17:29 10/05/18 20:31 10/06/18 01:52 10/06/18 07:13 Bedside Glucose 116 164 117 Hemoglobin A1c 5.8 Test 10/06/18 07:40 10/06/18 11:30 Bedside Glucose 93 113 Medications Medication Current Medications Ceftriaxone Sodium 50 ml @ 100 mls/hr Q24H IVPB Last administered on 10/05/18at 17:34; Admin Dose 100 MLS/HR; Start 10/04/18 at 18:00 Hydralazine HCl (Apresoline) 10 mg Q6H PRN IV ELEVATED BLOOD PRESSURE Last administered on 10/04/18at 11:44; Admin Dose 10 MG; Start 10/03/18 at 23:00 Acetaminophen (Tylenol Tab) 650 mg Q4H PRN PO MILD PAIN(1-3)OR ELEVATED TEMP Last administered on 10/05/18at 02:10; Admin Dose 650 MG; Start 10/03/18 at 23:00 Levothyroxine Sodium (Synthroid) 88 mcg BEFORE BREAKFAST PO Last administered on 10/06/18at 06:22; Admin Dose 88 MCG; Start 10/04/18 at 07:00 Prednisolone Acetate (Pred-Forte 1%) 1 drop QID BOTH EYES Last administered on 10/06/18at 13:18; Admin Dose 1 DROP; Start 10/04/18 at 09:00 Atorvastatin Calcium (Lipitor) 10 mg DAILY@21 PO Last administered on 10/05/18at 21:01; Admin Dose 10 MG; Start 10/04/18 at 21:00 Lisinopril (Zestril) 20 mg BID PO Last administered on 10/06/18at 08:41; Admin Dose 20 MG; Start 10/04/18 at 21:00 Diagnostic Test (Pha) (Accu-Chek) 1 ea 02 XX Last administered on 10/05/18at 02:00; Admin Dose 1 EA; Start 10/05/18 at 02:00 Insulin Aspart (Novolog Insulin Pen) NOVOLOG *MILD* ALGORITHM WITH MEALS BEDTIME SC ; Start 10/04/18 at 17:55 Miscellaneous Information 1 ea NOTE XX ; Start 10/04/18 at 14:30 Glucose (Glutose) 15 gm Q15M PRN PO DECREASED GLUCOSE; Start 10/04/18 at 14:30 Glucose (Glutose) 22.5 gm Q15M PRN PO DECREASED GLUCOSE; Start 10/04/18 at 14:30 Dextrose (D50w Syringe) 25 ml Q15M PRN IV DECREASED GLUCOSE; Start 10/04/18 at 14:30 Dextrose (D50w Syringe) 50 ml Q15M PRN IV DECREASED GLUCOSE; Start 10/04/18 at 14:30 Glucagon (Glucagen) 1 mg Q15M PRN IM DECREASED GLUCOSE; Start 10/04/18 at 14:30 Glucose (Glutose) 15 gm Q15M PRN BUCCAL DECREASED GLUCOSE; Start 10/04/18 at 1 4:30 Nifedipine (Procardia Xl) 30 mg BID PO Last administered on 10/06/18at 08:41; Admin Dose 30 MG; Start 10/04/18 at 21:00 Ondansetron HCl (Zofran Inj) 4 mg Q4H PRN IV NAUSEA AND/OR VOMITING; Start 10/04/18 at 16:30 Lorazepam (Ativan) 0.5 mg Q8H PRN IV ANXIETY; Start 10/04/18 at 16:30 PENNIE WOODARD MD Oct 06, 2018 15:12
--- NOTE | 2018-10-06 16:35 | CONS ---
Assessment/Plan Assessment/Plan Assessment/Plan (Daily) 1. Bradycardia resolved 2. Dizziness 3. Hypertension 4. Status post cataract surgery. 5. Urinary tract infection. 6. Dyslipidemia. Continue Procardia Continue Lisinopril Continue Lipitor Continue Synthroid Continue Antibiotics Consultation Date/Type/Reason Admit Date/Time Oct 03, 2018 at 20:13 Type of Consult Cardiology Date/Time of Note DATE: 10/06/18 TIME: 16:33 Past Medical History Home Meds Reported Medications Ofloxacin* (Ocuflox*) 0.3%-5 Ml Ophth Drops, 1 DROP BOTH EYES QID, BOTTLE 10/03/18 Ketorolac Tromethamine Oph (Ketorolac Tromethamine Oph) 0.5%-5 Ml Opht Drops, 1 DROP BOTH EYES QID, EA 10/03/18 Prednisolone Acetate* (Pred Forte*) 5 Ml Susp, 1 DROP BOTH EYES QID, EA 10/03/18 Simvastatin* (Zocor*) 10 Mg Tablet, 10 MG PO QHS, #30 TAB 10/03/18 Lisinopril* (Lisinopril*) 20 Mg Tablet, 20 MG PO DAILY, #30 TAB 10/03/18 Metformin Hcl* (Metformin Hcl*) 500 Mg Tablet, 500 MG PO WITH BREAKFAST DINNE, #60 TAB 10/03/18 Levothyroxine Sodium* (Levothyroxine Sodium*) 88 Mcg Tablet, 88 MCG PO BEFORE BREAKFAST, #30 TAB 10/03/18 Discontinued Reported Medications Ferrous Sulfate (Ferrousul) 325 Mg Tablet, PO BID 07/21/12 Levothyroxine Sodium (Levothroid) 88 Mcg Tablet, 88 MCG PO QAM 07/21/12 Folic Acid* (Folic Acid*) 1 Mg Tablet, PO DAILY 04/21/11 Amlodipine Besylate* (Norvasc*) 10 Mg Tablet, 10 MG PO DAILY 04/21/11 Discontinued Scripts Ibuprofen* (Motrin*) 600 Mg Tab, 600 MG PO Q6H PRN for PAIN, #30 TAB Prov:MARKUS MATHIS PA-C 05/08/16 Ondansetron Hcl* (Zofran*) 4 Mg Tab, 4 MG PO Q4H PRN for NAUSEA AND OR VOMITING, #30 TAB Prov:MARKUS MATHIS PA-C 05/08/16 Hydrocodone Bit-Acetaminophen ([place]) 5-325 Mg Tablet, 1 TAB PO Q4H PRN for PAIN, #30 TAB Prov:PINEDA PACHECO MD 03/24/14 Medications Current Medications Ceftriaxone Sodium 50 ml @ 100 mls/hr Q24H IVPB Last administered on 10/05/18 17:34; Admin Dose 100 MLS/HR; Start 10/04/18 at 18:00 Hydralazine HCl (Apresoline) 10 mg Q6H PRN IV ELEVATED BLOOD PRESSURE Last ad ministered on 10/04/18at 11:44; Admin Dose 10 MG; Start 10/03/18 at 23:00 Acetaminophen (Tylenol Tab) 650 mg Q4H PRN PO MILD PAIN(1-3)OR ELEVATED TEMP Last administered on 10/05/18 02:10; Admin Dose 650 MG; Start 10/03/18 at 23:00 Levothyroxine Sodium (Synthroid) 88 mcg BEFORE BREAKFAST PO Last administered on 10/06/18 06:22; Admin Dose 88 MCG; Start 10/04/18 at 07:00 Prednisolone Acetate (Pred-Forte 1%) 1 drop QID BOTH EYES Last administered on 10/06/18 13:18; Admin Dose 1 DROP; Start 10/04/18 at 09:00 Atorvastatin Calcium (Lipitor) 10 mg DAILY@21 PO Last administered on 10/05/18 21:01; Admin Dose 10 MG; Start 10/04/18 at 21:00 Lisinopril (Zestril) 20 mg BID PO Last administered on 10/06/18 08:41; Admin Dose 20 MG; Start 10/04/18 at 21:00 Diagnostic Test (Pha) (Accu-Chek) 1 ea 02 XX Last administered on 10/05/18 02:00; Admin Dose 1 EA; Start 10/05/18 at 02:00 Insulin Aspart (Novolog Insulin Pen) NOVOLOG *MILD* ALGORITHM WITH MEALS BEDTIME SC ; Start 10/04/18 at 17:55 Miscellaneous Information 1 ea NOTE XX ; Start 10/04/18 at 14:30 Glucose (Glutose) 15 gm Q15M PRN PO DECREASED GLUCOSE; Start 10/04/18 at 14:30 Glucose (Glutose) 22.5 gm Q15M PRN PO DECREASED GLUCOSE; Start 10/04/18 at 14:30 Dextrose (D50w Syringe) 25 ml Q15M PRN IV DECREASED GLUCOSE; Start 10/04/18 at 14:30 Dextrose (D50w Syringe) 50 ml Q15M PRN IV DECREASED GLUCOSE; Start 10/04/18 at 14:30 Glucagon (Glucagen) 1 mg Q15M PRN IM DECREASED GLUCOSE; Start 10/04/18 at 14:30 Glucose (Glutose) 15 gm Q15M PRN BUCCAL DECREASED GLUCOSE; Start 10/04/18 at 14:30 Nifedipine (Procardia Xl) 30 mg BID PO Last administered on 10/06/18at 08:41; Admin Dose 30 MG; Start 10/04/18 at 21:00 Ondansetron HCl (Zofran Inj) 4 mg Q4H PRN IV NAUSEA AND/OR VOMITING; Start 10/04/18 at 16:30 Lorazepam (Ativan) 0.5 mg Q8H PRN IV ANXIETY; Start 10/04/18 at 16:30 Allergies: Coded Allergies: No Known Allergy (Verified , 10/03/18) Past Surgical History Past Surgical Hx: other (Status post cataract extraction [place]:'s history of C- section 17 years ago) Social History Alcohol Use: none Smoking Status: Never smoker Drug Use: none Exam/Review of Systems Vital Signs Vitals Vital Signs Date Temp Pulse Resp B/P (MAP) Pulse Ox O2 O2 Flow FiO2 Time Delivery Rate 10/06/18 70 16:08 10/06/18 99.1 18 130/70 93 15:12 (90) 10/06/18 Room Air 04:00 Intake and Output 10/05/18 10/05/18 10/06/18 1515:00 23:00 07:00 IntakeIntake Total 950 ml 500 ml BalanceBalance 950 ml 500 ml Exam Constitutional: alert Head: normocephalic, atraumatic Respiratory: clear to auscultation Cardiovascular: regular rate and rhythm (no m/r/g) Gastrointestinal: soft Extremities: normal pulses Labs Result Diagram: 10/04/18 0741 10/04/18 0741 Results 24hrs Laboratory Tests Test 10/05/18 17:29 10/05/18 20:31 10/06/18 01:52 10/06/18 07:13 Bedside Glucose 116 164 117 Hemoglobin A1c 5.8 Test 10/06/18 07:40 10/06/18 11:30 Bedside Glucose 93 113 Medications Medications Current Medications Ceftriaxone Sodium 50 ml @ 100 mls/hr Q24H IVPB Last administered on 10/05/18 17:34; Admin Dose 100 MLS/HR; Start 10/04/18 at 18:00 Hydralazine HCl (Apresoline) 10 mg Q6H PRN IV ELEVATED BLOOD PRESSURE Last administered on 10/04/18 11:44; Admin Dose 10 MG; Start 10/03/18 at 23:00 Acetaminophen (Tylenol Tab) 650 mg Q4H PRN PO MILD PAIN(1-3)OR ELEVATED TEMP Last administered on 10/05/18 02:10; Admin Dose 650 MG; Start 10/03/18 at 23:00 Levothyroxine Sodium (Synthroid) 88 mcg BEFORE BREAKFAST PO Last administered on 10/06/18 06:22; Admin Dose 88 MCG; Start 10/04/18 at 07:00 Prednisolone Acetate (Pred-Forte 1%) 1 drop QID BOTH EYES Last administered on 10/06/18 13:18; Admin Dose 1 DROP; Start 10/04/18 at 09:00 Atorvastatin Calcium (Lipitor) 10 mg DAILY@21 PO Last administered on 10/05/18 21:01; Admin Dose 10 MG; Start 10/04/18 at 21:00 Lisinopril (Zestril) 20 mg BID PO Last administered on 10/06/18 08:41; Admin Dose 20 MG; Start 10/04/18 at 21:00 Diagnostic Test (Pha) (Accu-Chek) 1 ea 02 XX Last administered on 10/05/18at 02:00; Admin Dose 1 EA; Start 10/05/18 at 02:00 Insulin Aspart (Novolog Insulin Pen) NOVOLOG *MILD* ALGORITHM WITH MEALS BEDTIME SC ; Start 10/04/18 at 17:55 Miscellaneous Information 1 ea NOTE XX ; Start 10/04/18 at 14:30 Glucose (Glutose) 15 gm Q15M PRN PO DECREASED GLUCOSE; Start 10/04/18 at 14:30 Glucose (Glutose) 22.5 gm Q15M PRN PO DECREASED GLUCOSE; Start 10/04/18 at 14:30 Dextrose (D50w Syringe) 25 ml Q15M PRN IV DECREASED GLUCOSE; Start 10/04/18 at 14:30 Dextrose (D50w Syringe) 50 ml Q15M PRN IV DECREASED GLUCOSE; Start 10/04/18 at 14:30 Glucagon (Glucagen) 1 mg Q15M PRN IM DECREASED GLUCOSE; Start 10/04/18 at 14:30 Glucose (Glutose) 15 gm Q15M PRN BUCCAL DECREASED GLUCOSE; Start 10/04/18 at 14:30 Nifedipine (Procardia Xl) 30 mg BID PO Last administered on 10/06/18at 08:41; Admin Dose 30 MG; Start 10/04/18 at 21:00 Ondansetron HCl (Zofran Inj) 4 mg Q4H PRN IV NAUSEA AND/OR VOMITING; Start 10/04/18 at 16:30 Lorazepam (Ativan) 0.5 mg Q8H PRN IV ANXIETY; Start 10/04/18 at 16:30 USHA ALMAGUER M.D. Oct 06, 2018 16:35
--- NOTE | 2018-10-06 16:42 | PN ---
Date/Time of Note Date/Time of Note DATE: 10/06/18 TIME: 16:33 Assessment/Plan VTE Prophylaxis Risk score (from Ns)>0 risk: 1 SCD applied (from Ns): Yes Pharmacological prophylaxis: NA/contraindicated Pharm contraindication: low risk/ambulating Lines/Catheters IV [facility]from [facility] [place] Urinary Cath still in place: No Assessment/Plan Hospital Course 1. Headaches, dizziness, nausea, vomiting, weakness, 2. S/p left cataract surgery. Clearly, the patient was in distress after the surgery. . CT of the head is negative bradycardia has improved. 3. Severe bradycardia with a history of hypothyroidism. TSH within normal limit 4. Diabetes mellitus type II. 5. Hyperlipidemia. 6. Hypothyroidism. 7. Hypertension,controlled. Assessment/Plan -Continue with benazepril 20 twice daily and nifedipine 30 twice daily -d/c home -TSH within normal limits, cw with levothyroxine 88 -Repeat UA -Heart rate normal -Echo reviewed -Treated with Rocephin however UA shows gram-positive organism -Ambulation -Will need to follow-up with a eye surgeon outpatient, [facility] Result Diagram: 10/04/1841 10/04/1841 Results 24hrs Laboratory Tests Test 10/05/18 17:29 10/05/18 20:31 10/06/18 01:52 10/06/18 07:13 Bedside Glucose 116 164 117 Hemoglobin A1c 5.8 Test 10/06/18 07:40 10/06/18 11:30 Bedside Glucose 93 113 Subjective 24 Hr Interval Summary Constitutional: improved Exam/Review of Systems Exam Vitals Vital Signs Date Temp Pulse Resp B/P (MAP) Pulse Ox O2 O2 Flow FiO2 Time Delivery Rate 10/06/18 70 16:08 10/06/18 99.1 18 130/70 93 15:12 (90) 10/06/18 Room Air 04:00 Intake and Output 10/05/18 10/05/18 10/06/18 1515:00 23:00 07:00 IntakeIntake Total 950 ml 500 ml BalanceBalance 950 ml 500 ml Constitutional: alert, oriented Neck: supple Respiratory: clear to auscultation Cardiovascular: regular rate and rhythm Gastrointestinal: soft Genitourinary - Female: CVA tenderness; No nl adnexae, No nl external genitalia, No CMT, No uterus, No other Results Results 24hrs Laboratory Tests Test 10/05/18 17:29 10/05/18 20:31 10/06/18 01:52 10/06/18 07:13 Bedside Glucose 116 164 117 Hemoglobin A1c 5.8 Test 10/06/18 07:40 10/06/18 11:30 Bedside Glucose 93 113 Medications Medication Current Medications Ceftriaxone Sodium 50 ml @ 100 mls/hr Q24H IVPB Last administered on 10/05/18 17:34; Admin Dose 100 MLS/HR; Start 10/04/18 at 18:00 Hydralazine HCl (Apresoline) 10 mg Q6H PRN IV ELEVATED BLOOD PRESSURE Last administered on 10/04/18 11:44; Admin Dose 10 MG; Start 10/03/18 at 23:00 Acetaminophen (Tylenol Tab) 650 mg Q4H PRN PO MILD PAIN(1-3)OR ELEVATED TEMP Last administered on 10/05/18 02:10; Admin Dose 650 MG; Start 10/03/18 at 23:00 Levothyroxine Sodium (Synthroid) 88 mcg BEFORE BREAKFAST PO Last administered on 10/06/18 06:22; Admin Dose 88 MCG; Start 10/04/18 at 07:00 Prednisolone Acetate (Pred-Forte 1%) 1 drop QID BOTH EYES Last administered on 10/06/18 13:18; Admin Dose 1 DROP; Start 10/04/18 at 09:00 Atorvastatin Calcium (Lipitor) 10 mg DAILY@21 PO Last administered on 10/05/18 21:01; Admin Dose 10 MG; Start 10/04/18 at 21:00 Lisinopril (Zestril) 20 mg BID PO Last administered on 10/06/18 08:41; Admin Dose 20 MG; Start 10/04/18 at 21:00 Diagnostic Test (Pha) (Accu-Chek) 1 ea 02 XX Last administered on 10/05/18 02:00; Admin Dose 1 EA; Start 10/05/18 at 02:00 Insulin Aspart (Novolog Insulin Pen) NOVOLOG *MILD* ALGORITHM WITH MEALS BEDTIME SC ; Start 10/04/18 at 17:55 Miscellaneous Information 1 ea NOTE XX ; Start 10/04/18 at 14:30 Glucose (Glutose) 15 gm Q15M PRN PO DECREASED GLUCOSE; Start 10/04/18 at 14:30 Glucose (Glutose) 22.5 gm Q15M PRN PO DECREASED GLUCOSE; Start 10/04/18 at 14:30 Dextrose (D50w Syringe) 25 ml Q15M PRN IV DECREASED GLUCOSE; Start 10/04/18 at 14:30 Dextrose (D50w Syringe) 50 ml Q15M PRN IV DECREASED GLUCOSE; Start 10/04/18 at 14:30 Glucagon (Glucagen) 1 mg Q15M PRN IM DECREASED GLUCOSE; Start 10/04/18 at 14:30 Glucose (Glutose) 15 gm Q15M PRN BUCCAL DECREASED GLUCOSE; Start 10/04/18 at 14:30 Nifedipine (Procardia Xl) 30 mg BID PO Last administered on 10/06/18at 08:41; Admin Dose 30 MG; Start 10/04/18 at 21:00 Ondansetron HCl (Zofran Inj) 4 mg Q4H PRN IV NAUSEA AND/OR VOMITING; Start 10/04/18 at 16:30 Lorazepam (Ativan) 0.5 mg Q8H PRN IV ANXIETY; Start 10/04/18 at 16:30 STEVEN HADDAD Oct 06, 2018 16:42
--- NOTE | 2018-10-06 16:46 | DS ---
Date/Time of Note Date/Time of Note DATE: 10/06/18 TIME: 16:45 Discharge Summary Admission/Discharge Info Admit Date/Time Oct 03, 2018 at 20:13 Discharge Date/Time Patient Condition: Stable Consults Dr Silverio, cardiology Hospital Course This is a 58-year-old female with a past medical history of diabetes, hypertension, hyperlipidemia, hypothyroidism. According to the patient, she had been doing fine until 1 week ago she had a left cataract surgery. About 1 week ago, she is taking some 3 eyedrops, 1 is ofloxacin, another is prednisolone and ketorolac. After that, the patient has been feeling dizziness for the past few days. The patient is also having some headaches, also having episode of nausea and vomiting. The patient denied any chest pain, any shortness of breath. The patient came into the emergency department for further evaluation. On arrival to ED, blood pressure was 209/86, pulse was 52. BUN of 15, creatinine 0.52, alkaline phosphatase is 168, total protein 8.3, lipase 38. UA showed few bacteria, 2+ protein. The patient had chest x-ray that showed no acute disease. The patient's EKG showed marked sinus bradycardia and the patient was admitted for further management. Discharge Ds: 1. Headaches, dizziness, nausea, vomiting, weakness 2/2 UTI, 2. S/p left cataract surgery. Clearly, the patient was in distress after the surgery. . CT of the head is negative bradycardia has improved. 3. Severe bradycardia with a history of hypothyroidism. TSH within normal limit 4. Diabetes mellitus type II. 5. Hyperlipidemia. 6. Hypothyroidism. 7. Hypertension,controlled. ok to dc per cardiology standpoint Home Meds Active Scripts Levofloxacin* (Levofloxacin*) 500 Mg Tablet, 500 MG PO DAILY for 5 Days, TAB Prov:STEVEN HADDAD 10/06/18 Nifedipine (Procardia Xl) 30 Mg Tab.er.24, 30 MG PO BID for 30 Days, TAB Prov:STEVEN HADDAD 10/06/18 Lisinopril* (Lisinopril*) 20 Mg Tablet, 20 MG PO BID for 30 Days, TAB Prov:STEVEN HADDAD 10/06/18 Atorvastatin (Atorvastatin) 10 Mg Tablet, 10 MG PO DAILY@21 for 30 Days, TAB Prov:STEVEN HADDAD 10/06/18 Reported Medications Ofloxacin* (Ocuflox*) 0.3%-5 Ml Ophth Drops, 1 DROP BOTH EYES QID, BOTTLE 10/03/18 Ketorolac Tromethamine Oph (Ketorolac Tromethamine Oph) 0.5%-5 Ml Opht Drops, 1 DROP BOTH EYES QID, EA 10/03/18 Prednisolone Acetate* (Pred Forte*) 5 Ml Susp, 1 DROP BOTH EYES QID, EA 10/03/18 Metformin Hcl* (Metformin Hcl*) 500 Mg Tablet, 500 MG PO WITH BREAKFAST DINNE, #60 TAB 10/03/18 Levothyroxine Sodium* (Levothyroxine Sodium*) 88 Mcg Tablet, 88 MCG PO BEFORE BREAKFAST, #30 TAB 10/03/18 Discontinued Reported Medications Simvastatin* (Zocor*) 10 Mg Tablet, 10 MG PO QHS, #30 TAB 10/03/18 Lisinopril* (Lisinopril*) 20 Mg Tablet, 20 MG PO DAILY, #30 TAB 10/03/18 Ferrous Sulfate (Ferrousul) 325 Mg Tablet, PO BID 07/21/12 Levothyroxine Sodium (Levothroid) 88 Mcg Tablet, 88 MCG PO QAM 07/21/12 Folic Acid* (Folic Acid*) 1 Mg Tablet, PO DAILY 04/21/11 Amlodipine Besylate* (Norvasc*) 10 Mg Tablet, 10 MG PO DAILY 04/21/11 Discontinued Scripts Ibuprofen* (Motrin*) 600 Mg Tab, 600 MG PO Q6H PRN for PAIN, #30 TAB Prov:MARKUS MATHIS PA-C 05/08/16 Ondansetron Hcl* (Zofran*) 4 Mg Tab, 4 MG PO Q4H PRN for NAUSEA AND OR VOMITING, #30 TAB Prov:MARKUS MATHIS PA-C 05/08/16 Hydrocodone Bit-Acetaminophen ([place]) 5-325 Mg Tablet, 1 TAB PO Q4H PRN for PAIN, #30 TAB Prov:PINEDA PACHECO MD 03/24/14 Primary Care Provider Not On Staff Doctor Time spent on discharge: < 30 minutes Pending Labs Laboratory Tests Test 10/05/18 17:29 10/05/18 20:31 10/06/18 01:52 4/13/19 07:13 Bedside 116 164 117 Glucose mg/dL (70-220) mg/dL (70-220) mg/dL (70-220) Hemoglobin A1c 5.8 % (0-5.9) Test 10/06/18 07:40 10/06/18 11:30 Bedside 93 113 Glucose mg/dL (70-220) mg/dL (70-220) STEVEN HADDAD Oct 06, 2018 16:46
--- NOTE | 2018-10-06 16:50 | PDOCDIS ---
Discharge Instructions CONDITION [id number] Patient Condition: [id number] Stable HOME CARE INSTRUCTIONS: [id number] Special Diet: [id number] controlled carbs ACTIVITY: [id number] Activity Restrictions: [id number] Slowly Increase Activity Rest between Activity Avoid heavy lifting FOLLOW UP/APPOINTMENTS Follow-up Plan PCP 1 week Ophthalmology surgery f/up on Monday STEVEN HADDAD Oct 06, 2018 16:50
[2018-10-06] MEDS ORDERED: LEVO500T10 PO (16:53)
[2018-10-06] MEDS ORDERED: LISI-471 PO (16:53)
[2018-10-06] MEDS ORDERED: NIFE30TA2 PO (16:53)
[2018-10-06] MEDS ORDERED: ATOR10TA65 PO (16:53)
== END 2018-10-06 17:50 | disposition home or self-care (01) | DRG 690 ==
LOC: E/R 12:35 → TEL 20:13
PROVIDERS: ADMIT Internal Medicine Nephrology; ATTEND Internal Medicine Nephrology
DX: N39.0 Urinary tract infection, site not specified (principal); R00.1 Bradycardia, unspecified; E03.9 Hypothyroidism, unspecified; E11.9 Type 2 diabetes mellitus without complications; E78.00 Pure hypercholesterolemia, unspecified; I10 Essential (primary) hypertension; E78.5 Hyperlipidemia, unspecified; R51 Headache; M19.90 Unspecified osteoarthritis, unspecified site; E86.0 Dehydration; R11.2 Nausea with vomiting, unspecified; M06.9 Rheumatoid arthritis, unspecified; Z79.4 Long term (current) use of insulin; Z98.42 Cataract extraction status, left eye
CPT/HCPCS: 36415; 70450; 71045; 80053; 81001; 81003; 82962; 83036; 83690; 84439; 84443; 84481; 84484; 85025; 87086; 93005; 93306; 96374; 96375; J0360; J0696; J1815; J1885; J2405; J7030